=== PATIENT | female | born 1985 | race Caucasian/White ===

== ENCOUNTER → 2016-06-23 | Outpatient (CLI) | payer OTHER ==
[~2016-06-23] MED LIST: AMOXICILLIN PO; AMOXICILLIN500 M1 PO; ATENOLOL PO; AZO DINE95 MG PO; BACLOFEN10 MG PO; BACLOFEN5 GM PO; BACTRIM DS TAB1 EACH PO; BACTRIM DS TABL1 TA1 PO; BIRTH CONTROL PILL; BIRTH CONTROL PILL PO; BUSPAR PO; CALCIUM1 TAB.CHEW; CAPTOPRIL PO; CERTAGEN PO; CHLORTHALIDONE50 M1 PO; CILOXAN5 ML OP; CIPRO PO; CIPRO250 MG PO; CO Q-1010 MG PO; CORTISPORI10 ML OTIC AD; DICLOFENAC; DOXYCYCLINE; FLEXERIL PO; FLEXERIL10 MG PO; HCTZ PO; HYDROCHLOROTHIA25 GM; HYDROCHLOROTHIAZIDE PO; HYDROCODON-ACE1 EAC7 PO; IBUPROFEN800 MG PO; KEFLEX; LIORESAL10 MG DOB; LIPITOR PO; LIPITOR20 MG; LIPITOR40 MG; LOMOTIL TABLET1 TAB PO; LORCET PLUS 7.1 EACH PO; LORTAB 5/500 TA1 TA1 PO; MACROBID100 MG PO; MEDROL; MEDROL PO; MOBIC PO; MULTIVITAMIN1 UDCAP; NAPROSYN500 MG PO; NASONEX17 GM; NORCO 7.5-3251 EACH PO; NORCO1 TAB 10/3 PO; ORTHO TRI-7 DAYS X PO; ORTHO TRI-7 DAYSX 3 PO; PERCOCET5/325 PO; PHENERGAN; PHENERGAN PO; PHENERGAN PR; PHENERGAN25 MG PO; POTASSIUM CHLO10 ME1 PO; POTASSIUM99 M1; PRAVACHOL; PRENATAL VITAMI1 TA3; PRILOSEC; PRILOSEC PO; PRILOSEC20 MG PO; PYRIDIUM PO; PYRIDIUM100 MG; PYRIDIUM100 MG PO; QUASENSE1 BLIST PA PO; ULTRACET TABLET1 TAB PO; ULTRAM PO; VICODIN 5/1 TAB 5/50 PO; VICODIN ES 7.51 EAC1 PO; VICODIN PO; VITAMIN D1000 UNI1 PO; VOLTAREN75 MG PO; ZANTAC PO; ZANTAC150 MG PO; ZEBETA5 MG PO; ZOFRAN ODT4 M1 PO; ZOFRAN ODT4 MG PO; [UNRECOGNIZED DRUG - REMARK]
--- NOTE | ~2016-06-23 | CR63 ---
[facility] A Service of [facility] & [facility] RADIOLOGY TEXT RESULTS PATIENT: JAZMYNE LIAO LOCATION: [facility] : 85 UNIT #: [id number] AGE: [address]: David Fields MD SEX: F ORDER DR: [id number] [facility] [address]. [place], [place] [address] [id number] O MR#: [id number] Acc #: [id number] NAME: JAZMYNE LIAO : 1985 SEX: F STUDY DATE/TIME: 06/23/2016 10:28 UNIT: [facility] ROOM: STUDY DESCRIPTION: CR Chest 2 View Attending Physician: David Fields M.D. Referring Physician: David Fields M.D. Ordering Physician: David Fields M.D. Primary Care Physician: David Fields M.D. MEDICAL IMAGING REPORT This report is preliminary unless electronic signature is present EXAM Chest 06/23/2016, [facility] HISTORY 31-year-old female patient with chest pain, short of air, cough and congestion past 2 months. 15 years smoking history. High blood pressure. COMPARISON 05/09/2015 FINDINGS Two-view chest demonstrates normal cardiac size and configuration. Hilar structures and mediastinal contours are preserved. Bilateral lungs are clear. Bony thorax is intact. IMPRESSION Negative chest. No acute chest finding. Dictated by... Fermin Munguia M.D. THIS IS AN ELECTRONICALLY VERIFIED REPORT Fermin Munguia M.D. at 06/23/2016 12:57 PM JBB/to TD: 06/23/2016 12:18 JOB #: [id number] MEDICAL IMAGING REPORT Page 1 of 1 COPY
== END | disposition home or self-care (01) ==
LOC: CRAD 10:20
DX: R05 Cough (principal)
CPT/HCPCS: 71020

== ENCOUNTER 2016-07-02 18:21 | Emergency (ER) | payer OTHER ==
--- NOTE | ~2016-07-02 | CR63 ---
[facility] A Service of [facility] & [facility] RADIOLOGY TEXT RESULTS PATIENT: JAZMYNE LIAO LOCATION: SED : 85 UNIT #: [id number] AGE: [address]: Carlos Alberto Barry SEX: F ORDER DR: [id number] [place] [id number] E MR#: [id number] Acc #: [id number] NAME: JAZMYNE LIAO : 1985 SEX: F STUDY DATE/TIME: 07/02/2016 18:57 UNIT: SED ROOM: STUDY DESCRIPTION: CR Chest 2 View Attending Physician: Carlos Alberto Barry P.A.-C. Referring Physician: Goldy Quintana M.D. Ordering Physician: Goldy Quintana M.D. Primary Care Physician: David Fields M.D. MEDICAL IMAGING REPORT This report is preliminary unless electronic signature is present. EXAM Chest x-ray, 07/02/2016. HISTORY 31-year-old female in the ED complaining of upper back/thoracic pain for about 1 week. TECHNIQUE PA and lateral upright chest series. FINDINGS The examination is negative. Heart size and pulmonary vascularity are normal. The lungs are expanded and clear. No visible pulmonary infiltrate or pleural effusion. No change since 06/23/2016. IMPRESSION Negative chest. No change since 06/23/2016. Dictated by... Endy Johnson M.D. THIS IS AN ELECTRONICALLY VERIFIED REPORT Endy Johnson M.D. at 07/05/2016 5:59 AM JOSE DE JESUS/denia TD: 07/03/2016 13:23 JOB #: [id number] MEDICAL IMAGING REPORT Page 1 of 1
[2016-07-02 18:20] LABS: URINE SOURCE CLEAN CATCH
[~2016-07-02 18:21] MED LIST changes: -BACLOFEN10 MG PO; -BACLOFEN5 GM PO; -BACTRIM DS TAB1 EACH PO; -CO Q-1010 MG PO; -LIORESAL10 MG DOB; -LORCET PLUS 7.1 EACH PO; -MOBIC PO; -NORCO 7.5-3251 EACH PO; -POTASSIUM99 M1; -VICODIN ES 7.51 EAC1 PO; -ZEBETA5 MG PO; -ZOFRAN ODT4 M1 PO; -ZOFRAN ODT4 MG PO
[2016-07-02 18:25] LABS: URINE APPEARANCE CLEAR; URINE BILIRUBIN NEG (NEG); URINE BLOOD NEG (NEG); URINE COLOR YELLOW; URINE GLUCOSE NEG (NORM); URINE KETONE NEG (NEG); URINE LEUKOCYTE ESTERASE NEG (NEG); URINE NITRATE NEG (NEG); URINE PH 6.5 (5-8); URINE PROTEIN NEG (NEG); URINE SPECIFIC GRAVITY <=1.005 (1.003-1.035); URINE UROBILINOGEN 0.2 MG/DL (NORM)
[2016-07-02 18:30] LABS: MICRO INDICATED? NO
[2016-07-02] MEDS ORDERED: LIORESAL10 MG DOB (19:51)
[2016-07-02] MEDS ORDERED: VICODIN ES 7.51 EAC1 PO (19:53)
== END 2016-07-02 19:53 | disposition home or self-care (01) ==
LOC: SED 18:21
PROVIDERS: Emergency Medicine
DX: S29.012A Strain of muscle and tendon of back wall of thorax, initial encounter (principal); S16.1XXA Strain of muscle, fascia and tendon at neck level, initial encounter; F31.9 Bipolar disorder, unspecified; K21.9 Gastro-esophageal reflux disease without esophagitis; Z87.442 Personal history of urinary calculi; F17.210 Nicotine dependence, cigarettes, uncomplicated; Z91.040 Latex allergy status; Z88.8 Allergy status to other drugs, medicaments and biological substances; X58.XXXA Exposure to other specified factors, initial encounter; Y92.9 Unspecified place or not applicable
CPT/HCPCS: 71020; 81003; 84703; 99283

== ENCOUNTER 2016-08-23 21:03 | Emergency (ER) | payer OTHER ==
[~2016-08-23 21:03] MED LIST changes: +LIORESAL10 MG DOB; +VICODIN ES 7.51 EAC1 PO
[2016-08-23] MEDS ORDERED: POTASSIUM99 M1 (21:19)
== END 2016-08-23 22:28 | disposition home or self-care (01) ==
LOC: SED 21:03
DX: R21 Rash and other nonspecific skin eruption (principal); I10 Essential (primary) hypertension; E78.5 Hyperlipidemia, unspecified; F17.210 Nicotine dependence, cigarettes, uncomplicated; Z98.51 Tubal ligation status; Z98.890 Other specified postprocedural states
CPT/HCPCS: 99282

== ENCOUNTER 2016-09-14 18:51 | Emergency (ER) | payer OTHER ==
[~2016-09-14 18:51] MED LIST changes: +POTASSIUM99 M1
== END 2016-09-14 20:36 | disposition home or self-care (01) ==
LOC: SED 18:51
DX: M54.5 Low back pain (principal); G89.29 Other chronic pain; I10 Essential (primary) hypertension; F17.210 Nicotine dependence, cigarettes, uncomplicated; K21.9 Gastro-esophageal reflux disease without esophagitis; F41.9 Anxiety disorder, unspecified; E05.90 Thyrotoxicosis, unspecified without thyrotoxic crisis or storm; Z98.51 Tubal ligation status; Z98.890 Other specified postprocedural states
CPT/HCPCS: 96372; 99283; J1885

== ENCOUNTER 2016-09-14 23:33 | Emergency (ER) | payer OTHER ==
--- NOTE | ~2016-09-14 | CT4 ---
[facility] A Service of [facility] RADIOLOGY TEXT RESULTS PATIENT: JAZMYNE LIAO LOCATION: SED : 85 UNIT #: [id number] AGE: [address]: Luz Leyva SEX: F ORDER DR: [id number] [address] [address] [id number] E MR#: [id number] Acc #: [id number] NAME: JAZMYNE LIAO : 1985 SEX: F STUDY DATE/TIME: 09/15/2016 1:16 UNIT: SED ROOM: STUDY DESCRIPTION: CT Abd and Pelv Wo Cont Attending Physician: Luz Leyva Pa-C Ordering Physician: Luz Leyva Pa-C Primary Care Physician: David Fields M.D. MEDICAL IMAGING REPORT This report is preliminary unless electronic signature is present. EXAM CT abdomen and pelvis without contrast INDICATION Flank and pelvic pain. Inability to urinate beginning 4 days ago. PROCEDURE Unenhanced CT abdomen and pelvis. This CT exam was performed with one or more of the following radiation dose reduction techniques: automatic exposure control, adjustment of mA and/or kV according to patient size, and iterative reconstruction. COMPARISON None FINDINGS ABDOMEN WITHOUT CONTRAST: Included lung bases are clear. Liver, spleen, adrenal glands, pancreas, gallbladder have an unremarkable unenhanced appearance. Bowel loops are nondilated. Appendix is nondilated. Tiny nonobstructing calculus in the left kidney. There is no radiodense ureteral calculus or hydronephrosis. PELVIS WITHOUT CONTRAST: Bladder decompressed by a Menendez catheter. No pelvic mass. No aggressive appearing bone lesion. IMPRESSION 1. No acute findings. 2. Tiny nonobstructing calculus in the left kidney. No radiodense ureteral or bladder calculus. No hydronephrosis. 3. Appendix is not dilated. [facility] A Service of [facility] RADIOLOGY TEXT RESULTS PATIENT: JAZMYNE LIAO LOCATION: SED : 85 UNIT #: [id number] AGE: [address]: Luz Leyva SEX: F ORDER DR: Dictated by... Aldair Kelly M.D. THIS IS AN ELECTRONICALLY VERIFIED REPORT Aldair Kelly M.D. at 09/15/2016 10:27 PM Ry TD: 09/15/2016 08:30 JOB #: [id number] MEDICAL IMAGING REPORT Page 1 of 1
[2016-09-15 00:47] LABS: URINE SOURCE CATH
[2016-09-15 00:50] LABS: URINE APPEARANCE HAZY; URINE BILIRUBIN NEG (NEG); URINE BLOOD NEG (NEG); URINE COLOR YELLOW; URINE GLUCOSE NEG (NORM); URINE KETONE TRACE (NEG); URINE LEUKOCYTE ESTERASE NEG (NEG); URINE NITRATE NEG (NEG); URINE PROTEIN TRACE (NEG); URINE SPECIFIC GRAVITY 1.025 (1.003-1.035)
[2016-09-15 00:51] LABS: MICRO INDICATED? NO
== END 2016-09-15 02:37 | disposition home or self-care (01) ==
LOC: SED 23:33
PROVIDERS: Physician Assistant Medical
DX: R33.9 Retention of urine, unspecified (principal); K21.9 Gastro-esophageal reflux disease without esophagitis; I10 Essential (primary) hypertension; Z98.51 Tubal ligation status; Z87.442 Personal history of urinary calculi; F41.9 Anxiety disorder, unspecified; F17.210 Nicotine dependence, cigarettes, uncomplicated; Z88.6 Allergy status to analgesic agent; Z88.5 Allergy status to narcotic agent; Z91.040 Latex allergy status; Z79.899 Other long term (current) drug therapy
CPT/HCPCS: 74176; 81003; 84703; 99284

== ENCOUNTER 2016-10-17 09:05 | Emergency (ER) | payer OTHER ==
--- NOTE | ~2016-10-17 | CT4 ---
[facility] A Service of [facility] RADIOLOGY TEXT RESULTS PATIENT: JAZMYNE LIAO LOCATION: SED : 85 UNIT #: [id number] AGE: [address]: Goldy Quintana MD SEX: F ORDER DR: [id number] [place] [id number] E MR#: [id number] Acc #: [id number] NAME: JAZMYNE LIAO : 1985 SEX: F STUDY DATE/TIME: 10/17/2016 10:29 UNIT: SED ROOM: STUDY DESCRIPTION: CT Abd and Pelv Wo Cont Attending Physician: Goldy Quintana M.D. Ordering Physician: Goldy Quintana M.D. Primary Care Physician: David Fields M.D. MEDICAL IMAGING REPORT This report is preliminary unless electronic signature is present. EXAM CT of the abdomen and pelvis without contrast INDICATIONS Left-sided flank pain beginning yesterday. TECHNIQUE CT of the abdomen and pelvis was performed without contrast. Coronal and sagittal reformatted images were obtained. This CT exam was performed with one or more of the following radiation dose reduction techniques: Automatic exposure control, adjustment of mA and/or kV according to patient size, and iterative reconstruction. Comparison is made with 09/15/2016. FINDINGS The lung bases are clear. Mild fatty infiltration of the liver. Gallbladder is unremarkable. The spleen is unremarkable. Punctate, nonobstructing stone in the lower pole of the left kidney. The right kidney is unremarkable. No ureteral stones or hydronephrosis. The adrenal glands are unremarkable. The pancreas is unremarkable. PELVIS: Tubal ligation clips. The urinary bladder is unremarkable. The colon is unremarkable. The appendix is normal. The bone windows are unremarkable. IMPRESSION There is a punctate, nonobstructing stone in the lower pole of the left kidney. The exam is otherwise unremarkable. Dictated by... Reagan Keen M.D. [facility] A Service of [facility] RADIOLOGY TEXT RESULTS PATIENT: JAZMYNE LIAO LOCATION: SED : 85 UNIT #: [id number] AGE: [address]: Goldy Quintana MD SEX: F ORDER DR: THIS IS AN ELECTRONICALLY VERIFIED REPORT Reagan Keen M.D. at 10/18/2016 7:27 AM NICOLE/penny TD: 10/17/2016 20:44 JOB #: [id number] MEDICAL IMAGING REPORT Page 1 of 1
[2016-10-17] MEDS ORDERED: BACLOFEN5 GM PO (09:11)
[2016-10-17] MEDS ORDERED: ZEBETA5 MG PO (09:11)
[2016-10-17] MEDS ORDERED: MOBIC PO (09:12)
[2016-10-17 10:00] LABS: BASOPHIL# 0.1 X10e3 (0-0.3); BASOPHIL% 0.8 % (0-2.5); EOSINOPHIL# 0.1 X10e3 (0-0.7); HEMATOCRIT 41.7 % (35.0-45.0); HEMOGLOBIN 14.3 gm/dL (12.0-16.0); LYMPHOCYTE# 1.8 X10e3 (1.0-3.5); LYMPHOCYTE% 24.3 % (17.0-45.0); MEAN CELL VOLUME 83.7 FL (83-96); MEAN CORPUSCULAR HEMOGLOBIN 28.6 PG (28-34); MEAN CORPUSCULAR HGB CONC 34.2 g/dL (30-36); MONOCYTE# 0.4 X10e3 (0-1.0); MONOCYTE% 4.8 % (3.0-12.0); NEUTROPHIL# 5.1 X10e3 (1.5-7.1); NEUTROPHIL% 68.1 % (40-75); PLATELET COUNT 201 X10e3 (140-420); RED BLOOD COUNT 4.99 X10e (3.90-5.30); URINE SOURCE CLEAN CATCH; WHITE BLOOD COUNT 7.5 X10e3 (4.0-10.5)
[2016-10-17 10:02] LABS: URINE APPEARANCE CLEAR; URINE BILIRUBIN NEG (NEG); URINE BLOOD 2+ (NEG); URINE COLOR YELLOW; URINE GLUCOSE NEG (NORM); URINE KETONE NEG (NEG); URINE LEUKOCYTE ESTERASE NEG (NEG); URINE NITRATE NEG (NEG); URINE PH 6.5 (5-8); URINE PROTEIN NEG (NEG); URINE SPECIFIC GRAVITY 1.025 (1.003-1.035); URINE UROBILINOGEN 0.2 MG/DL (NORM)
[2016-10-17 10:08] LABS: DIFF IND NO
[2016-10-17 10:09] LABS: MICRO INDICATED? YES
[2016-10-17 10:11] LABS: CULTURE INDICATED? NO; URINE BACTERIA NEG (NEG); URINE WBC 0-2 /[HPF] (0-5)
[2016-10-17 10:12] LABS: AMPHETAMINE NEG (NEG); BARBITURATES NEG (NEG); BENZODIAZEPINES NEG (NEG); COCAINE NEG (NEG); MARIJUANA NEG (NEG); OPIATES NEG (NEG); TRICYCLIC ANTIDEPRESSANTS NEG (NEG); U METHADONE NEG (NEG)
[2016-10-17 10:20] LABS: ALBUMIN SERUM 3.9 g/dL (3.5-5.0); BILIRUBIN,TOTAL 0.5 mg/dL (0.2-2.0); BUN/CREATININE RATIO 17.14; CALCIUM SERUM 8.8 mg/dL (8.4-10.2); CREATININE SERUM 0.7 mg/dL (0.6-1.4); GLOM FILT RATE Estimated 115.5 mL/min (>60); POTASSIUM 3.5 mmol/L (3.5-5.1); PROTEIN TOTAL SERUM 6.9 g/dL (6.0-8.3)
[2016-10-17] MEDS ORDERED: ZOFRAN ODT4 MG PO (11:36)
[2016-10-17] MEDS ORDERED: BACTRIM DS TAB1 EACH PO (11:36)
[2016-10-17] MEDS ORDERED: LORCET PLUS 7.1 EACH PO (11:37)
== END 2016-10-17 11:34 | disposition home or self-care (01) ==
LOC: SED 09:05
PROVIDERS: Emergency Medicine
DX: N20.0 Calculus of kidney (principal); N30.90 Cystitis, unspecified without hematuria; Z88.5 Allergy status to narcotic agent; Z88.6 Allergy status to analgesic agent; Z91.040 Latex allergy status; Z79.899 Other long term (current) drug therapy
CPT/HCPCS: 36415; 74176; 80053; 80307; 81003; 84703; 85025; 96374; 96375; 99284; J2270; J2405

== ENCOUNTER 2016-10-17 20:32 | Emergency (ER) | payer OTHER ==
[~2016-10-17] VITALS: Ht 160 cm; Wt 88.0 kg
[~2016-10-17 20:32] MED LIST changes: +BACLOFEN5 GM PO; +BACTRIM DS TAB1 EACH PO; +LORCET PLUS 7.1 EACH PO; +MOBIC PO; +ZEBETA5 MG PO; +ZOFRAN ODT4 MG PO
== END 2016-10-18 00:30 | disposition home or self-care (01) ==
LOC: CED 20:32
DX: R10.9 Unspecified abdominal pain (principal); F41.9 Anxiety disorder, unspecified; Z88.5 Allergy status to narcotic agent; F17.200 Nicotine dependence, unspecified, uncomplicated; Z91.040 Latex allergy status; Z88.6 Allergy status to analgesic agent; Z79.899 Other long term (current) drug therapy
CPT/HCPCS: 99284

== ENCOUNTER 2016-11-07 01:15 | Emergency (ER) | payer OTHER ==
[~2016-11-07] VITALS: Ht 157.5 cm; Wt 88.0 kg
--- NOTE | ~2016-11-07 | CT4 ---
[facility] A Service of [facility] RADIOLOGY TEXT RESULTS PATIENT: JAZMYNE LIAO LOCATION: SED : 85 UNIT #: [id number] AGE: [address]: Quinn Leon MD SEX: F ORDER DR: [id number] [place] [id number] E MR#: [id number] Acc #: [id number] NAME: JAZMYNE LIAO : 1985 SEX: F STUDY DATE/TIME: 11/07/2016 4:25 UNIT: SED ROOM: STUDY DESCRIPTION: CT Abd and Pelv Wo Cont Attending Physician: Quinn Leon M.D. Ordering Physician: Quinn Leon M.D. Primary Care Physician: David Fields M.D. MEDICAL IMAGING REPORT This report is preliminary unless electronic signature is present. EXAM CT abdomen and pelvis, noncontrast, kidney stone protocol, 11/07/2016 HISTORY 31-year-old female in the ED complaining of left flank pain beginning about 5 hours prior to arrival. TECHNIQUE CT examination of the abdomen and pelvis without oral or IV contrast using kidney stone protocol. This CT exam was performed with one or more of the following radiation dose reduction techniques: automatic exposure control, adjustment of mA and/or kV according to patient size, and iterative reconstruction. COMPARISON CT stone study, 10/17/2016 FINDINGS ABDOMEN FINDINGS: Tiny nonobstructing calculus in the lower pole left kidney measuring about 2.0 mm. Kidneys, ureters and bladder otherwise negative. No evidence of urinary obstruction. Liver, pancreas and spleen are normal in size and appearance without contrast. No gallbladder distension or bile duct dilatation. Small bowel and colon are normal in caliber and appearance, as imaged. Normal appendix. PELVIS FINDINGS: Uterus, ovaries, urinary bladder and rectum are within normal limits. bilateral tubal ligation clips. Limited lung base images show no active disease in the lower chest. [facility] A Service [facility] RADIOLOGY TEXT RESULTS PATIENT: JAZMYNE LIAO LOCATION: SED : 85 UNIT #: [id number] AGE: [address]: Quinn Leon MD SEX: F ORDER DR: IMPRESSION 1. No acute abnormality within the abdomen or pelvis. 2. single tiny nonobstructing calculus in the lower pole left kidney. 3. The remainder of the examination is negative. Normal appendix. Dictated by... Endy Johnson M.D. THIS IS AN ELECTRONICALLY VERIFIED REPORT Endy Johnson M.D. at 11/07/2016 9:53 PM Lauri TD: 11/07/2016 10:11 JOB #: [id number] MEDICAL IMAGING REPORT Page 1 of 1
[2016-11-07] MEDS ORDERED: BACLOFEN10 MG PO (01:22)
[2016-11-07] MEDS ORDERED: NORCO 7.5-3251 EACH PO (01:23)
[2016-11-07] MEDS ORDERED: CO Q-1010 MG PO (01:23)
[2016-11-07] MEDS ORDERED: ZOFRAN ODT4 M1 PO (01:23)
[2016-11-07 02:32] LABS: URINE SOURCE CLEAN CATCH
[2016-11-07 02:35] LABS: URINE APPEARANCE CLEAR; URINE BILIRUBIN NEG (NEG); URINE BLOOD NEG (NEG); URINE COLOR YELLOW; URINE GLUCOSE NEG (NORM); URINE KETONE NEG (NEG); URINE LEUKOCYTE ESTERASE NEG (NEG); URINE NITRATE NEG (NEG); URINE PH 6.5 (5-8); URINE PROTEIN NEG (NEG); URINE UROBILINOGEN 0.2 MG/DL (NORM)
[2016-11-07 02:36] LABS: MICRO INDICATED? NO
[2016-11-07 03:34] LABS: BASOPHIL# 0.1 X10e3 (0-0.3); BASOPHIL% 1.2 % (0-2.5); DIFF IND NO; EOSINOPHIL# 0.3 X10e3 (0-0.7); EOSINOPHIL% 2.7 % (0.0-7.0); HEMATOCRIT 40.4 % (35.0-45.0); HEMOGLOBIN 13.3 gm/dL (12.0-16.0); LYMPHOCYTE# 3.4 X10e3 (1.0-3.5); LYMPHOCYTE% 36.1 % (17.0-45.0); MEAN CELL VOLUME 84.8 FL (83-96); MONOCYTE# 0.4 X10e3 (0-1.0); MONOCYTE% 4.4 % (3.0-12.0); NEUTROPHIL# 5.3 X10e3 (1.5-7.1); NEUTROPHIL% 55.6 % (40-75); PLATELET COUNT 212 X10e3 (140-420); RED BLOOD COUNT 4.76 X10e (3.90-5.30); RED CELL DISTRIBUTION WIDTH 15.5 % (11.0-15.5); WHITE BLOOD COUNT 9.5 X10e3 (4.0-10.5)
[2016-11-07 03:57] LABS: CALCIUM SERUM 8.5 mg/dL (8.4-10.2); CREATININE SERUM 0.7 mg/dL (0.6-1.4); GLOM FILT RATE Estimated 115.5 mL/min (>60); POTASSIUM 3.6 mmol/L (3.5-5.1)
== END 2016-11-07 05:49 | disposition home or self-care (01) ==
LOC: SED 01:15
PROVIDERS: Emergency Medicine
DX: R10.9 Unspecified abdominal pain (principal); R11.0 Nausea; Z79.899 Other long term (current) drug therapy; Z88.5 Allergy status to narcotic agent; Z88.6 Allergy status to analgesic agent; Z88.1 Allergy status to other antibiotic agents; Z91.040 Latex allergy status
CPT/HCPCS: 36415; 74176; 80048; 81003; 84703; 85025; 96361; 96374; 96375; 99284; J1885; J2270; J2405